=== PATIENT | female | born 1940 | race Two or more races ===

== ENCOUNTER 2017-03-10 08:00 | Inpatient (IN) | payer OTHER ==
[~2017-03-10] VITALS: Ht 154.9 cm; Wt 53.5 kg
[2017-03-10] MEDS ORDERED: SYNTHROID88 MCG PO (11:10)
[2017-03-10] MEDS ORDERED: FOLGARD TABLET1 EACH PO (11:10)
[2017-03-10] MEDS ORDERED: ZESTRIL20 MG PO (11:10)
[2017-03-10] MEDS ORDERED: CALTRATE 600+D1 EAC1 PO (11:11)
[2017-03-10] MEDS ORDERED: PLAVIX75 MG PO (11:11)
[2017-03-10] MEDS ORDERED: ZOCOR20 MG PO (11:11)
== END 2017-03-20 16:15 | disposition home or self-care (01) | DRG 331 ==
LOC: EDSTATUS 08:00 → ADM 08:00 → O/R 03-17 05:55 → SURG 03-17 05:55 → SURH 03-17 07:00 → SURG 03-17 12:11
PROVIDERS: Colon & Rectal Surgery
PROC: 0DJD8ZZ Inspection of Lower Intestinal Tract, Via Natural or Artificial Opening Endoscopic (ICD-10-PCS; 2017-03-17)
PROC: 0DTE4ZZ Resection of Large Intestine, Percutaneous Endoscopic Approach (ICD-10-PCS; principal; 2017-03-17 07:00)
PROC: 3E0F7GC Introduction of Other Therapeutic Substance into Respiratory Tract, Via Natural or Artificial Opening (ICD-10-PCS; 2017-03-18)
DX: K57.32 Diverticulitis of large intestine without perforation or abscess without bleeding (principal); E03.8 Other specified hypothyroidism; I11.9 Hypertensive heart disease without heart failure; E78.4 Other hyperlipidemia

== ENCOUNTER 2018-03-12 08:58 | Day surgery (SDC) | payer OTHER ==
[~2018-03-12 08:58] MED LIST: CALTRATE 600+D1 EAC1 PO; FOLGARD TABLET1 EACH PO; PLAVIX75 MG PO; SYNTHROID88 MCG PO; ZESTRIL20 MG PO; ZOCOR20 MG PO
== END 2018-03-12 14:20 | disposition home or self-care (01) ==
LOC: AMB-ENDOS 08:58
DX: K57.32 Diverticulitis of large intestine without perforation or abscess without bleeding (principal); K64.1 Second degree hemorrhoids